=== PATIENT | female | born 1950 | race Two or more races ===

== ENCOUNTER 2019-02-24 11:08 | Outpatient (CLI) | payer OTHER | END 2019-02-24 12:03 | disposition home or self-care (01) | LOC: MAMO-SONO 11:08 | DX: Z12.31 Encounter for screening mammogram for malignant neoplasm of breast (principal); Z87.898 Personal history of other specified conditions; N64.59 Other signs and symptoms in breast; N64.89 Other specified disorders of breast ==

== ENCOUNTER 2022-08-30 07:45 | Day surgery (SDC) | payer OTHER ==
[~2022-08-30] VITALS: Ht 154.9 cm; Wt 86.2 kg
[~2022-08-30 07:45] MED LIST: BETAXOLOL HCL10 MG PO; LEVO-T25 MCG PO; METFORMIN HCL500 M3 PO; VALSARTAN-HCTZ1 EAC1 PO
== END 2022-08-30 19:45 | disposition home or self-care (01) ==
LOC: CIR.AMB 07:45
PROVIDERS: ATTEND Surgery
DX: D24.2 Benign neoplasm of left breast (principal); R92.1 Mammographic calcification found on diagnostic imaging of breast; N60.82 Other benign mammary dysplasias of left breast; I10 Essential (primary) hypertension; F12.90 Cannabis use, unspecified, uncomplicated; E11.9 Type 2 diabetes mellitus without complications; Z79.84 Long term (current) use of oral hypoglycemic drugs; E03.9 Hypothyroidism, unspecified; Z88.0 Allergy status to penicillin; Z91.013 Allergy to seafood; Z20.822 Contact with and (suspected) exposure to COVID-19
CPT/HCPCS: 19301; 19281; L8699